=== PATIENT | female | born 1960 | race Caucasian/White ===

== ENCOUNTER 2017-11-09 19:06 | Emergency (ER) | payer BC, OTHER ==
[~2017-11-09] VITALS: Ht 170.2 cm; Wt 100.6 kg
[~2017-11-09 19:06] MED LIST: ASCO500T12 PO; ASPI-496 PO; ASPI-650 PO; ATOR40TA PO; CHOL400C PO; CHOL5000 PO; DIAZ2TAB PO; FERR325T63 PO; FISH OIL OMEGA1 EACH PO; HYDR-3237 PO; IBUP-1223 PO; MAGN250T8 PO; MULT1TAB60 PO; NIAC500T PO; VITA100C4 PO; VITA80004 PO; [UNRECOGNIZED DRUG - CODE]
[2017-11-09 19:17] VITALS: BP 153/94
[2017-11-09] MEDS ORDERED: MELO15TA6 PO (19:23)
[2017-11-09] MEDS ORDERED: GABA300C10 PO (19:23)
[2017-11-09] MEDS ORDERED: DIPH,PERTUSS(ACELL),TET VAC/PF 0.5 ML IM-VACC ONE (20:00)
[2017-11-09] MEDS ORDERED: LIDOCAINE 1%, 20ML SQ ONE (20:00)
== END 2017-11-09 21:19 | disposition home or self-care (01) ==
LOC: ED 21:01
DX: S33.5XXA Sprain of ligaments of lumbar spine, initial encounter (principal); S56.912A Strain of unspecified muscles, fascia and tendons at forearm level, left arm, initial encounter; S56.911A Strain of unspecified muscles, fascia and tendons at forearm level, right arm, initial encounter; V43.52XA Car driver injured in collision with other type car in traffic accident, initial encounter; Y93.89 Activity, other specified; Y99.8 Other external cause status; Y92.410 Unspecified street and highway as the place of occurrence of the external cause
CPT/HCPCS: 99283